=== PATIENT | female | born 1975 | race Hispanic/Latino ===

== ENCOUNTER 2020-06-20 16:30 | Inpatient (IN) | payer OTHER ==
[~2020-06-20] VITALS: Ht 170.2 cm; Wt 104.3 kg
[2020-06-20] MEDS ORDERED: SODIUM CHLORIDE 0.9% 1000ML 1,000 ML IV STA (16:47)
[2020-06-20] MEDS ORDERED: ONDANSETRON HCL INJ 2MG/ML 2ML 2 MG/ML VIAL IV NR (17:00)
[2020-06-20] MEDS ORDERED: KETOROLAC TROMETHAMINE 30 MG/ML VIAL IV NR (17:00)
[2020-06-20] MEDS ORDERED: HYDROMORPHONE 1MG/1ML INJ IV NR (17:00)
[2020-06-20 17:17] LABS: BASOPHILS # (AUTO) 0.1 (0.0-0.1); BASOPHILS % 0.7 % (0.0-1.0); EOSINOPHILS # (AUTO) 0.2 (0.0-0.4); EOSINOPHILS % 2.7 % (0.0-6.0); HEMATOCRIT 37.9 % (34.2-44.1); HEMOGLOBIN 12.2 g/dL (12.0-16.0); LYMPHOCYTES # (AUTO) 3.2 (1.0-3.2); LYMPHOCYTES % 45.1 % (18.0-39.1); MEAN CORPUSCULAR HEMOGLOBIN 27.2 pg (28-32); MEAN CORPUSCULAR HGB CONC 32.2 g/dL (31-35); MEAN CORPUSCULAR VOLUME 84.4 fL (81-99); MONOCYTES # (AUTO) 0.5 (0.2-0.8); MONOCYTES % 7.4 % (4.4-11.3); NEUTROPHILS # (AUTO) 3.1 (2.1-6.9); NEUTROPHILS % 43.8 % (38.7-80.0); PLATELET COUNT 326 x10e3/uL (140-360); RED BLOOD COUNT 4.49 x10e6/uL (3.6-5.1); RED CELL DISTRIBUTION WIDTH 14.3 % (11.7-14.4)
[2020-06-20 17:22] LABS: INR 0.92; PROTHROMBIN TIME 12.8 seconds (11.9-14.5)
[2020-06-20 17:23] LABS: PARTIAL THROMBOPLASTIN TIME 29.2 seconds (23.8-35.5)
[2020-06-20 17:31] LABS: ALANINE AMINOTRANSFERASE 31 IU/L (0-55); ALBUMIN 4.4 g/dL (3.5-5.0); ALBUMIN/GLOBULIN RATIO 1.2 (0.8-2.0); ALKALINE PHOSPHATASE 90 IU/L (40-150); BLOOD UREA NITROGEN 11 mg/dL (7-26); BUN/CREATININE RATIO 12 (6-25); CALCIUM 9.1 mg/dL (8.4-10.2); CARBON DIOXIDE 25 mmol/L (22-29); CHLORIDE 106 mmol/L (98-107); CREATININE, SERUM 0.93 mg/dL (0.57-1.11); EST GLOMERULAR FILTRATION RATE > 60 ML/MIN (60-); GLUCOSE 113 mg/dL (74-118); SODIUM 140 mmol/L (136-145)
[2020-06-20 17:40] LABS: CLARITY,URINE SL CLOUDY (CLEAR); COLOR,URINE ORANGE (YELLOW); LEUKOCYTE ESTERASE ,URINE NEGATIVE (NEGATIVE); NITRITE,URINE NEGATIVE (NEGATIVE)
[2020-06-20 17:41] LABS: BILIRUBIN,URINE NEGATIVE (NEGATIVE); KETONES,URINE TRACE (NEGATIVE); PROTEIN,URINE DIPSTICK 2+ (NEGATIVE); URINE UROBILINOGEN 0.2 mg/dL (0.2 - 1)
[2020-06-20 17:59] LABS: BACTERIA,URINE MANY /HPF; EPITHELIAL CELLS,URINE MODERATE /LPF; RBC,URINE >50 /HPF (0-5); WBC,URINE (MAN) >50 /HPF (0-5)
[2020-06-20] MEDS ORDERED: CEFTRIAXONE SOD 1 GM/NS 50 ML 50 ML IV SCH (19:00)
[2020-06-20] MEDS ORDERED: SODIUM CHLORIDE 0.9% 1000ML 1,000 ML IV SCH (19:45)
[2020-06-20] MEDS ORDERED: ONDANSETRON HCL INJ 2MG/ML 2ML 2 MG/ML VIAL IV PRN (20:00)
[2020-06-20] MEDS: SODIUM CHLORIDE 0.9% 1000ML 1,000 ML IV SCH (20:29)
[2020-06-20 20:49] VITALS: BP 177/93
[2020-06-20 21:00] VITALS: BP 177/93
[2020-06-20 21:19] VITALS: BP 177/93
[2020-06-20] MEDS ORDERED: LEVAQUIN500 MG PO (22:39)
[2020-06-20] MEDS ORDERED: METFORMIN HCL500 M1 (22:39)
[2020-06-20] MEDS ORDERED: NORCO 5-325 TA1 EACH PO (22:39)
[2020-06-20] MEDS ORDERED: NAPROSYN500 MG PO (22:39)
[2020-06-20] MEDS ORDERED: FLOMAX0.4 MG PO (22:39)
[2020-06-21] VITALS (8 sets, daily range): BP systolic 136–177; BP diastolic 72–105
[2020-06-21] MEDS: SODIUM CHLORIDE 0.9% 1000ML 1,000 ML IV SCH ×3 (04:45→20:00)
[2020-06-21 05:28] LABS: BASOPHILS # (AUTO) 0.1 (0.0-0.1); BASOPHILS % 0.9 % (0.0-1.0); EOSINOPHILS # (AUTO) 0.2 (0.0-0.4); EOSINOPHILS % 2.9 % (0.0-6.0); HEMATOCRIT 33.7 % (34.2-44.1); LYMPHOCYTES # (AUTO) 2.5 (1.0-3.2); LYMPHOCYTES % 42.6 % (18.0-39.1); MEAN CORPUSCULAR HEMOGLOBIN 28.1 pg (28-32); MEAN CORPUSCULAR HGB CONC 32.6 g/dL (31-35); MONOCYTES # (AUTO) 0.5 (0.2-0.8); MONOCYTES % 8.4 % (4.4-11.3); NEUTROPHILS # (AUTO) 2.6 (2.1-6.9); NEUTROPHILS % 45.2 % (38.7-80.0); PLATELET COUNT 249 x10e3/uL (140-360); RED BLOOD COUNT 3.92 x10e6/uL (3.6-5.1); RED CELL DISTRIBUTION WIDTH 14.2 % (11.7-14.4)
[2020-06-21 06:03] LABS: ALANINE AMINOTRANSFERASE 53 IU/L (0-55); ALBUMIN 3.6 g/dL (3.5-5.0); ALBUMIN/GLOBULIN RATIO 1.3 (0.8-2.0); ALKALINE PHOSPHATASE 98 IU/L (40-150); ANION GAP 10.9 mmol/L (8-16); BLOOD UREA NITROGEN 8 mg/dL (7-26); BUN/CREATININE RATIO 11 (6-25); CALCIUM 8.1 mg/dL (8.4-10.2); CARBON DIOXIDE 24 mmol/L (22-29); CHLORIDE 108 mmol/L (98-107); EST GLOMERULAR FILTRATION RATE > 60 ML/MIN (60-); GLUCOSE 98 mg/dL (74-118); POTASSIUM 3.9 mmol/L (3.5-5.1); SODIUM 139 mmol/L (136-145)
[2020-06-21] MEDS ORDERED: ACETAMINOPHEN 325 MG TAB PO PRN (07:00)
[2020-06-21] MEDS ORDERED: ZOLPIDEM TARTRATE 5 MG TAB PO PRN (07:00)
[2020-06-21] MEDS: MORPHINE SULFATE INJ 4 MG/ML INJ 1ML IV PRN ×2 (07:38→21:26)
[2020-06-21] MEDS: DOCUSATE SODIUM 100 MG CAP PO PRN (07:39)
[2020-06-21] MEDS: TAMSULOSIN HCL 0.4 MG CAP PO SCH (09:50)
[2020-06-21] MEDS: CEFTRIAXONE SOD 1 GM/NS 50 ML 50 ML IV SCH ×2 (09:50→21:22)
[2020-06-21] MEDS: HYDROCODONE/APAP 5MG-325MG TAB PO PRN (15:33)
[2020-06-22] VITALS (8 sets, daily range): BP systolic 147–184; BP diastolic 76–98
[2020-06-22] MEDS: SODIUM CHLORIDE 0.9% 1000ML 1,000 ML IV SCH ×2 (04:05→11:31)
[2020-06-22] MEDS: DOCUSATE SODIUM 100 MG CAP PO PRN ×2 (07:37→21:02)
[2020-06-22] MEDS: CEFTRIAXONE SOD 1 GM/NS 50 ML 50 ML IV SCH ×2 (07:37→20:56)
[2020-06-22] MEDS: TAMSULOSIN HCL 0.4 MG CAP PO SCH (07:37)
[2020-06-22] MEDS: HYDROCODONE/APAP 5MG-325MG TAB PO PRN ×3 (07:38→21:02)
[2020-06-22] MEDS ORDERED: ONDANSETRON HCL 4 MG ORAL DISINTEGRATING TAB PO PRN (10:15)
[2020-06-22] MEDS: HYDRALAZINE HCL 25 MG TAB PO SCH ×2 (14:36→20:57)
[2020-06-23] VITALS (8 sets, daily range): BP systolic 142–185; BP diastolic 86–93
[2020-06-23] MEDS: SODIUM CHLORIDE 0.9% 1000ML 1,000 ML IV SCH ×3 (05:19→21:06)
[2020-06-23] MEDS: LOSARTAN POTASSIUM 100 MG TAB PO SCH ×2 (06:30→08:56)
[2020-06-23] MEDS ORDERED: BISACODYL 10 MG SUPP PR ONE (08:30)
[2020-06-23] MEDS: CEFTRIAXONE SOD 1 GM/NS 50 ML 50 ML IV SCH ×2 (08:56→21:05)
[2020-06-23] MEDS: HYDRALAZINE HCL 25 MG TAB PO SCH ×3 (08:56→21:05)
[2020-06-23] MEDS: TAMSULOSIN HCL 0.4 MG CAP PO SCH (08:57)
[2020-06-23] MEDS: HYDROCODONE/APAP 5MG-325MG TAB PO PRN (16:30)
[2020-06-24] VITALS: BP 148/81
[2020-06-24 04:00] VITALS: BP 150/75
[2020-06-24] MEDS: SODIUM CHLORIDE 0.9% 1000ML 1,000 ML IV SCH (04:00)
[2020-06-24 07:27] VITALS: BP 160/83
[2020-06-24] MEDS ORDERED: B&O 60MG R/S 60 MG SUPP PR ONE (07:58)
[2020-06-24] MEDS ORDERED: IOPAMIDOL 300MG/ML 50ML INFUS..BTL IV ONE (07:58)
[2020-06-24] MEDS ORDERED: PHENAZOPYRIDINE HCL 100 MG TAB PO PRN (08:15)
[2020-06-24] MEDS ORDERED: NIFEDIPINE CR 30 MG TAB PO SCH (09:00)
[2020-06-24] MEDS: CEFTRIAXONE SOD 1 GM/NS 50 ML 50 ML IV SCH (09:00)
[2020-06-24] MEDS ORDERED: LOSARTAN POTASSIUM 100 MG TAB PO SCH (09:00)
[2020-06-24] MEDS ORDERED: HYDRALAZINE HCL 100 MG TABLET PO SCH (09:00)
[2020-06-24] MEDS ORDERED: OXYBUTYNIN CHLORIDE 5 MG TAB PO SCH (09:00)
[2020-06-24 09:38] VITALS: BP 135/84
[2020-06-24] MEDS ORDERED: ZOFRAN8 MG (10:13)
[2020-06-24] MEDS ORDERED: TYLENOL # 31 EA PO (10:13)
[2020-06-24] MEDS ORDERED: DITROPAN XL5 MG PO (10:15)
[2020-06-24] MEDS ORDERED: PYRIDIUM200 MG PO (10:16)
[2020-06-24] MEDS ORDERED: CEFUROXIME250 MG PO (10:17)
[2020-06-24] MEDS: TAMSULOSIN HCL 0.4 MG CAP PO SCH (10:36)
[2020-06-24 10:50] VITALS: BP 140/87
[2020-06-24] MEDS ORDERED: KETOROLAC TROMETHAMINE 30 MG/ML VIAL ONE (12:28)
[2020-06-24] MEDS ORDERED: DEXAMETHASONE SOD PHOS INJ 4 MG/ML VIAL ONE (12:28)
[2020-06-24] MEDS ORDERED: LIDOCAINE HCL 2% LOCAL INJ 5 ML SDV VIAL INJ ONE (12:28)
[2020-06-24] MEDS ORDERED: PROPOFOL IV EMULSION 10 MG/ML 20 ML VIAL ONE (12:28)
[2020-06-24] MEDS ORDERED: SEVOFLURANE INHAL SOLN 250 ML PEN BTL ONE (12:28)
[2020-06-24] MEDS ORDERED: ONDANSETRON HCL INJ 2MG/ML 2ML 2 MG/ML VIAL ONE (12:28)
[2020-06-24] MEDS ORDERED: FENTANYL CITRATE/PF 100MCG/2 ML INJ ONE (13:14)
[2020-06-24] MEDS ORDERED: MIDAZOLAM HCL 2 MG/2 ML VIAL ONE (13:14)
== END 2020-06-24 11:24 | disposition home or self-care (01) | DRG 660 ==
LOC: ER 16:58 → ERHOLD 20:01 → MED/SURG 21:03 → OBSVTOIN 06-22 15:03
PROVIDERS: ADMIT Internal Medicine; ATTEND Internal Medicine
PROC: 0TF78ZZ Fragmentation in Left Ureter, Via Natural or Artificial Opening Endoscopic (ICD-10-PCS; 2020-06-24)
PROC: BT141ZZ Fluoroscopy of Kidneys, Ureters and Bladder using Low Osmolar Contrast (ICD-10-PCS; 2020-06-24)
PROC: 0T778DZ Dilation of Left Ureter with Intraluminal Device, Via Natural or Artificial Opening Endoscopic (ICD-10-PCS; principal; 2020-06-24 07:30)
PROC: 0T768ZZ Dilation of Right Ureter, Via Natural or Artificial Opening Endoscopic (ICD-10-PCS; 2020-06-24 07:30)
DX: N20.0 Calculus of kidney (principal); N10 Acute pyelonephritis; E66.9 Obesity, unspecified; Z68.36 Body mass index [BMI] 36.0-36.9, adult; K80.20 Calculus of gallbladder without cholecystitis without obstruction; E11.9 Type 2 diabetes mellitus without complications; Z11.59 Encounter for screening for other viral diseases; R00.1 Bradycardia, unspecified; N81.2 Incomplete uterovaginal prolapse; N36.41 Hypermobility of urethra; I10 Essential (primary) hypertension
CPT/HCPCS: 36415; 50590; 71045; 74176; 80053; 81001; 81025; 85025; 85610; 85730; 87040; 87086; 96361; 99284; C1758; C1769; C2617; G0378; J0696; J1100; J1170; J1885; J2001; J2250; J2270; J2405; J3010; J7030; U0002

== ENCOUNTER → 2020-12-22 | Outpatient (CLI) | payer OTHER ==
[~2020-12-22] MED LIST: CEFUROXIME250 MG PO; COVID-19 VACC, MRNA(MODERNA)/PF 100 MCG/0.5 ML VIAL IM ONE; DITROPAN XL5 MG PO; FLOMAX0.4 MG PO; LEVAQUIN500 MG PO; METFORMIN HCL500 M1; NAPROSYN500 MG PO; NORCO 5-325 TA1 EACH PO; PYRIDIUM200 MG PO; TYLENOL # 31 EA PO; ZOFRAN8 MG
== END | disposition home or self-care (01) ==
LOC: VACCPMC 17:04
DX: Z23 Encounter for immunization (principal); Z20.822 Contact with and (suspected) exposure to COVID-19
CPT/HCPCS: 91301